=== PATIENT | female | born 1970 ===

== ENCOUNTER 2017-03-17 12:59 | Observation (INO) | payer SELFPAY ==
[2017-03-17] MEDS ORDERED: Sodium Chloride 0.9% 1,000 ML IV STA (14:03)
--- NOTE | 2017-03-17 14:12 | ED PDOC ---
HPI: Female Pain Time Seen by Provider: 03/17/17 13:57 Chief Complaint (Nursing): Female Genitourinary Chief Complaint (Provider): vaginal bleeding History Per: Patient History/Exam Limitations: no limitations Onset/Duration Of Symptoms: Days (2 weeks) Current Symptoms Are (Timing): Still Present Additional Complaint(s): Pt. with vaginal bleeding. Lower pelvic cramps. Ongoing for 2 weeks. Seen by pcp yesterday and no further tx done. Pt. with light-headedness. no chest pain , dypsnea. Has weakness all over. No dysuria. Past Medical History Reviewed: Nursing Documentation, Vital Signs Vital Signs: Last Vital Signs Temp 98.8 F 03/17/17 13:46 Pulse 121 H 03/17/17 13:46 Resp 19 03/17/17 13:46 BP 150/69 03/17/17 13:46 Pulse Ox 100 03/17/17 13:46 - Medical History PMH: Anemia (?) - Surgical History Surgical History: No Surg Hx - Family History Family History: States: Unknown Family Hx - Social History Alcohol: None Drugs: Denies - Allergies Allergies/Adverse Reactions: Allergies Allergy/AdvReac Type Severity Reaction Status Date / Time No Known Allergies Allergy Verified 03/17/17 13:45 Review of Systems ROS Statement: Except As Marked, All Systems Reviewed And Found Negative Constitutional: Positive for: Weakness Genitourinary Female: Positive for: Vaginal Bleeding, Pelvic Pain Neurological: Positive for: Weakness, Dizziness Physical Exam - Reviewed Nursing Documentation Reviewed: Yes Vital Signs Reviewed: Yes - Physical Exam Appears: Positive for: Uncomfortable Head Exam: Positive for: ATRAUMATIC, NORMAL INSPECTION, NORMOCEPHALIC Skin: Positive for: Normal Color, Warm, DRY Eye Exam: Positive for: EOMI, Normal appearance, PERRL ENT: Positive for: Normal ENT Inspection Neck: Positive for: Normal, Painless ROM Cardiovascular/Chest: Positive for: Regular Rate, Rhythm Respiratory: Positive for: CNT, Normal Breath Sounds Gastrointestinal/Abdominal: Positive for: Bowel Sounds, Soft, Tenderness ( across lower) Pelvic Exam: Positive for: External Exam Normal. Negative for: Speculum Exam Normal (blood clots and dark blood coming from cervix), Discharge Back: Positive for: Normal Inspection. Negative for: L CVA Tenderness, R CVA Tenderness Extremity: Positive for: Normal ROM. Negative for: Tenderness, Pedal Edema Neurologic/Psych: Positive for: Alert, Oriented - Laboratory Results Result Diagrams: 03/17/17 14:36 03/17/17 14:36 Interpretation Of Abn Labs: 4.7 hg - ECG O2 Sat by Pulse Oximetry: 100 Pulse Ox Interpretation: Normal - Progress ED Course And Treament: 1606: Spoke with Dr. Stern. Will admit tele. Pt. stable. Spoke with Dr. Ignacio who will consult. - Critical Care Total Time (In Min): 30 Documented Critical Care: Time excludes all time spent performint seperately billable procedures Disposition - Clinical Impression Clinical Impression: Anemia, Fibroid, Ovarian cyst, Vaginal bleeding - Patient ED Disposition Is Patient to be Admitted: Yes Counseled Patient/Family Regarding: Studies Performed, Diagnosis - Disposition Disposition Time: 16:08 Condition: SERIOUS - Pt Status Changed To: Hospital Disposition Of: Inpatient - Admit Certification Admit to Inpatient:: After my assessment, the patient will require hospitalization for at least two midnights. This is because of the severity of symptoms shown, intensity of services needed, and/or the medical risk in this patient being treated as an outpatient. - POA Present On Arrival: None
[2017-03-17 14:49] LABS: BASO # 0.1 K/uL (0.0-0.2); EOS # 0.1 K/uL (0.0-0.7); EOS % 0.6 % (0.0-4.0); LYMPH # 1.3 K/uL (1.0-4.3); LYMPH % 12.6 % (20.0-40.0); MEAN CELL VOLUME 67.3 fl (81.0-99.0); MEAN CORPUSCULAR HGB CONC 31.3 g/dL (33.0-37.0); MEAN PLATELET VOLUME 7.7 fl (7.2-11.7); MONO # 0.7 K/uL (0.0-0.8); MONO % 6.9 % (0.0-10.0); NEUT # 8.2 K/uL (1.8-7.0); NEUT % 78.9 % (50.0-75.0); NRBC % 0.3 % (0.0-0.0); RBC 2.23 Mil/uL (3.80-5.20); RED CELL DISTRIBUTION WIDTH 25.2 % (11.5-14.5); WHITE BLOOD COUNT 10.3 K/uL (4.8-10.8)
[2017-03-17 14:58] LABS: ALB/GLOB RATIO 1.1 (1.0-2.1); ALBUMIN 3.3 g/dL (3.5-5.0); ALT/SGPT 33 U/L (9-52); AST/SGOT 19 U/L (14-36); BLOOD UREA NITROGEN 11 mg/dl (7-17); CALCIUM 8.4 mg/dL (8.4-10.2); GFR AFRICAN-AMERICAN > 60; GFR NON-AFRICAN AMERICAN > 60
[2017-03-17 15:03] LABS: HEMOGLOBIN 4.7 g/dL (12.0-16.0)
[2017-03-17 15:06] LABS: PARTIAL THROMBOPLASTIN TIME 25.2 Seconds (25.6-37.1)
--- NOTE | 2017-03-17 16:07 | US ---
HISTORY: Abnormal vaginal bleeding. Duration of symptoms: 2 weeks. Menstrual status: LMP 03/01/2017. Irregular cycles. COMPARISON: None available. TECHNIQUE: Transvaginal only. Real -time technique with 2D, duplex and color Doppler FINDINGS: UTERUS: Measures 6.9 x 12 cm. Normal in size and appearance. Fundal fibroid to the right of the midline 1.8 x 2 cm. Fibroid in the body of the uterus to the right of the midline 1.9 x 2.8 cm. ENDOMETRIUM: Measures 18.0 mm in diameter. Endometrial hypertrophy. No ultrasound findings to suggest gestational sac, fluid, debris, mass or polyp or other pathologic process within the endometrium. CERVIX: No cervical abnormality identified. RIGHT OVARY: Measures 3 x 4.2 x 4.7 cm. No solid mass. Normal flow. Septated cyst 2.2 x 4.1 x 4.4 LEFT OVARY: Measures 1.4 x 1.6 x 2 cm. No solid mass. Normal flow. Simple cyst 1.1 x 2.2 cm. Multiple subcentimeter follicles. FREE FLUID: No significant free fluid noted. OTHER FINDINGS: None. IMPRESSION: Mildly enlarged, heterogeneous uterus containing 2 small fibroids. Bilateral adnexal cysts, septated larger cyst on the right. Endometrial hypertrophy without focal abnormality.
--- NOTE | 2017-03-17 17:15 | CP.PCM.HP ---
History of Present Illness - History of Present Illness History of Present Illness: Chief Complaint : menorrhagia HPI : 47 y/o lady with hx of AUB, Anemia ( transfused in the past), Fibroids, HTN came because of 2 wks history of heavy vaginal bleeding with clots. Patient states she has a history of of hypermenorrhea or years. A few years ago she was admitted to [facility] for severe Anemia and was transfused. She was diagnosed to have Fibroids and had followed up with a TECHNICIAN TERMINAL AND REPEATER . For the past 2 weeks , she started having very heavy vaginal bleeding with clots , using about 10- 15 sanitary pads per day. Today , he felt weak so presented to the ED. No dizziness, no lightheadedness, no ANTHONY, mild lower abd dicomfort, no N/V, no CP , no SOB, no palpitation Present on Admission - Present on Admission Any Indicators Present on Admission: No Review of Systems - Review of Systems All systems: reviewed and no additional remarkable complaints except - Constitutional Constitutional: Weakness. absent: Chills - EENT Eyes: absent: Blurred Vision, Change in Vision Ears: absent: Decreased Hearing, Ear Discharge Nose/Mouth/Throat: absent: Nasal Congestion - Cardiovascular Cardiovascular: absent: Chest Pain, Lightheadedness, Palpitations - Respiratory Respiratory: absent: Cough, Dyspnea, Dyspnea on Exertion - Gastrointestinal Gastrointestinal: Bloating. absent: Abdominal Pain - Genitourinary Genitourinary: absent: Difficulty Urinating, Pyuria, Nocturia - Reproductive: Female Reproductive:Female: Menses >/= 8 Days, Heavy Menses, Abnormal Vaginal Bleeding - Musculoskeletal Musculoskeletal: absent: Myalgias - Integumentary Integumentary: absent: Rash - Neurological Neurological: absent: Disequilibrium, Dizziness, Focal Weakness, Frequent Falls , Headaches - Psychiatric Psychiatric: absent: Anxiety, Confusion, Suicidal Ideation - Endocrine Endocrine: absent: Polydipsia, Polyphagia, Polyuria - Hematologic/Lymphatic Hematologic: absent: Easy Bleeding, Easy Bruising Additional comments: AUB Past Patient History - Infectious Disease Hx of Infectious Diseases: None - Tetanus Immunizations Tetanus Immunization: Unknown - Past Medical History & Family History Past Medical History?: Yes Past Family History: Reviewed and not pertinent Pertinent Family History: Mother : HTN - Past Social History Smoking Status: Never Smoked Chewing Tobacco Use: No Cigar Use: No Alcohol: None Drugs: Denies Home Situation {Lives}: With Family - CARDIAC Hx Hypertension: Yes - PULMONARY Hx Respiratory Disorders: No - NEUROLOGICAL Hx Neurological Disorder: No - HEENT Hx HEENT Problems: No - RENAL Hx Chronic Kidney Disease: No - ENDOCRINE/METABOLIC Hx Endocrine Disorders: No - HEMATOLOGICAL/ONCOLOGICAL Hx Anemia: Yes (?) - INTEGUMENTARY Hx Dermatological Problems: No - MUSCULOSKELETAL/RHEUMATOLOGICAL Hx Musculoskeletal Disorders: No - GASTROINTESTINAL Hx Gastrointestinal Disorders: No - GENITOURINARY/GYNECOLOGICAL Other/Comment: fibroids - PSYCHIATRIC Hx Psychophysiologic Disorder: No Hx Substance Use: No - SURGICAL HISTORY Hx Tubal Ligation: Yes - ANESTHESIA Hx Anesthesia: Yes Meds Allergies/Adverse Reactions: Allergies Allergy/AdvReac Type Severity Reaction Status Date / Time No Known Allergies Allergy Verified 03/17/17 13:45 Physical Exam - Constitutional Appears: Non-toxic, No Acute Distress - Head Exam Head Exam: ATRAUMATIC, NORMAL INSPECTION, NORMOCEPHALIC - Eye Exam Eye Exam: EOMI, Normal appearance, PERRL Pupil Exam: NORMAL ACCOMODATION - ENT Exam ENT Exam: Mucous Membranes Moist, Normal External Ear Exam - Neck Exam Neck exam: Positive for: Full Rom. Negative for: Meningismus - Respiratory Exam Respiratory Exam: NORMAL BREATHING PATTERN. absent: Respiratory Distress - Cardiovascular Exam Cardiovascular Exam: Tachycardia, REGULAR RHYTHM, +S1, +S2 - GI/Abdominal Exam GI & Abdominal Exam: Normal Bowel Sounds, Soft. absent: Tenderness - Back Exam Back exam: NORMAL INSPECTION. absent: CVA tenderness (L), CVA tenderness (R) - Neurological Exam Neurological exam: Alert, CN II-XII Intact, Oriented x3, Reflexes Normal - Psychiatric Exam Psychiatric exam: Normal Affect, Normal Mood - Skin Skin Exam: Dry, Pallor, Warm Results - Vital Signs Recent Vital Signs: Last Vital Signs Temp 98.8 F 03/17/17 17:10 Pulse 95 H 03/17/17 17:10 Resp 16 03/17/17 17:10 BP 116/64 03/17/17 17:10 Pulse Ox 100 03/17/17 17:10 - Labs Result Diagrams: 03/17/17 14:36 03/17/17 14:36 Labs: Laboratory Results - last 24 hr 03/17/17 03/17/17 03/17/17 14:36 14:36 14:36 WBC 10.3 RBC 2.23 L Hgb 4.7 L* Hct 15.0 L MCV 67.3 L MCH 21.0 L MCHC 31.3 L RDW 25.2 H Plt Count 419 H MPV 7.7 Neut % (Auto) 78.9 H Lymph % (Auto) 12.6 L [place] % (Auto) 6.9 Eos % (Auto) 0.6 Baso % (Auto) 1.0 Neut # (Auto) 8.2 H Lymph # (Auto) 1.3 [place] # (Auto) 0.7 Eos # (Auto) 0.1 Baso # (Auto) 0.1 PT INR APTT Sodium 140 Potassium 3.8 Chloride 106 Carbon Dioxide 24 Anion Gap 14 BUN 11 Creatinine 0.6 L Est GFR ( Amer) > 60 Est GFR (Non-Af Amer) > 60 Random Glucose 104 Calcium 8.4 Total Bilirubin 0.2 AST 19 ALT 33 Alkaline Phosphatase 97 Total Protein 6.4 Albumin 3.3 L Globulin 3.1 Albumin/Globulin Ratio 1.1 Blood Type O POSITIVE Blood Type Confirm Antibody Screen Negative Crossmatch See Detail BBK History Checked No verified bt 03/17/17 03/17/17 14:36 16:30 WBC RBC Hgb Hct MCV MCH MCHC RDW Plt Count MPV Neut % (Auto) Lymph % (Auto) [place] % (Auto) Eos % (Auto) Baso % (Auto) Neut # (Auto) Lymph # (Auto) [place] # (Auto) Eos # (Auto) Baso # (Auto) PT 11.0 INR 1.0 APTT 25.2 L Sodium Potassium Chloride Carbon Dioxide Anion Gap BUN Creatinine Est GFR ( Amer) Est GFR (Non-Af Amer) Random Glucose Calcium Total Bilirubin AST ALT Alkaline Phosphatase Total Protein Albumin Globulin Albumin/Globulin Ratio Blood Type Blood Type Confirm O POSITIVE Antibody Screen Crossmatch BBK History Checked - EKG Data EKG Interpreted by: Myself EKG shows normal: Sinus rhythm Rate: Tachycardia - EKG Data When Compared to Previous EKG: No Significant Change Assessment & Plan (1) Abnormal uterine bleeding (AUB) Status: Acute (2) Acute blood loss anemia Status: Acute (3) Fibroid Status: Chronic (4) Ovarian cyst Status: Chronic (5) HTN (hypertension) Status: Chronic (6) DVT prophylaxis Status: Acute - Assessment and Plan (Free Text) Assessment: 47 y/o lady with Hx of Fibroids, HTN, came in bec of menorrhagia and weakness. (1) Abnormal uterine bleeding (AUB) Status: Acute Pt has been having menorrhagia x 2 wks with blood clots tachycardic TECHNICIAN TERMINAL AND REPEATER consult Pelvic Sono :Mildly enlarged, heterogeneous uterus containing 2 small fibroids. Bilateral adnexal cysts, septated larger cyst on the right. Endometrial hypertrophy without focal abnormality. (2) Acute blood loss anemia Status: Acute Pt came in with Hgb 4.7 likely due to acute and chronic blood loss Transfuse 2 units PRBC Will give Venofer IVF hydration (3) Fibroid Status: Chronic (4) Ovarian cyst Status: Chronic 4cm septated cyst right (5) HTN (hypertension) Status: Chronic hold off on antihypertensive for now (6) DVT prophylaxis Status: Acute SCD Decision To Admit - Pt Status Changed To: Hospital Disposition Of: Inpatient - Admit Certification Admit to Inpatient:: After my assessment, the patient will require hospitalization for at least two midnights. This is because of the severity of symptoms shown, intensity of services needed, and/or the medical risk in this patient being treated as an outpatient. - . Bed Request Type: Telemetry Admitting Physician: Ena Stern
[2017-03-17] MEDS: Sodium Chloride 0.9% 1,000 ML IV SCH (19:58)
--- NOTE | 2017-03-17 19:59 | CP.PCM.CON ---
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 Patient states she has a history of heavy periods for years but this is the first time she is bleeding for more than one week. A few years ago she was admitted to [facility] for severe anemia and was transfused. She was diagnosed to have Fibroids and had followed up with a HYDRATE CONTROL TENDER . Today , he felt weak so presented to the ED. Denies dizziness, no lightheadedness, no ANTHONY, mild lower abd discomfort, no N/V, no CP, no SOB, no palpitation, no urinary symptoms. Primary HYDRATE CONTROL TENDER: Dr Yamila Mg. PObH: , NVD x3. PGyn: no h/o std, uterine fibroids. PMH: HTN FMH: denies. NKDA. PSH: denies Past Patient History - Infectious Disease Hx of Infectious Diseases: None - Tetanus Immunizations Tetanus Immunization: Unknown - Past Medical History & Family History Past Medical History?: Yes Past Family History: Reviewed and not pertinent - Past Social History Smoking Status: Never Smoked Chewing Tobacco Use: No Cigar Use: No Alcohol: None Drugs: Denies Home Situation {Lives}: With Family - CARDIAC Hx Hypertension: Yes - PULMONARY Hx Respiratory Disorders: No - NEUROLOGICAL Hx Neurological Disorder: No - HEENT Hx HEENT Problems: No - RENAL Hx Chronic Kidney Disease: No - ENDOCRINE/METABOLIC Hx Endocrine Disorders: No - HEMATOLOGICAL/ONCOLOGICAL Hx Anemia: Yes (?) - INTEGUMENTARY Hx Dermatological Problems: No - MUSCULOSKELETAL/RHEUMATOLOGICAL Hx Musculoskeletal Disorders: No - GASTROINTESTINAL Hx Gastrointestinal Disorders: No - GENITOURINARY/GYNECOLOGICAL Other/Comment: fibroids - PSYCHIATRIC Hx Psychophysiologic Disorder: No Hx Substance Use: No - SURGICAL HISTORY Hx Tubal Ligation: Yes - ANESTHESIA Hx Anesthesia: Yes Meds Allergies/Adverse Reactions: Allergies Allergy/AdvReac Type Severity Reaction Status Date / Time No Known Allergies Allergy Verified 03/17/17 13:45 - Medications Medications: Current Medications Iron Sucrose 100 mg/ Sodium (Chloride) 105 mls @ 105 mls/hr IVPB DAILY JEFFERSON Stop: 03/20/17 09:59 Sodium Chloride (Sodium Chloride 0.9%) 1,000 mls @ 125 mls/hr IV .Q8H JEFFERSON Stop: 03/18/17 17:50 Last Admin: 03/17/17 19:58 Dose: Not Given Physical Exam - Constitutional Appears: No Acute Distress - Head Exam Head Exam: NORMAL INSPECTION - Eye Exam Eye Exam: EOMI, PERRL Additional comments: Mucuses pale - Neck Exam Neck exam: Negative for: Thyromegaly - Respiratory Exam Respiratory Exam: Clear to Auscultation Bilateral. absent: Rhonchi, Wheezes - Cardiovascular Exam Cardiovascular Exam: Tachycardia, REGULAR RHYTHM. absent: Systolic Murmur - GI/Abdominal Exam GI & Abdominal Exam: Normal Bowel Sounds, Soft. absent: Distended Additional comments: Mild tenderness on low abdomen during palpation. - Exam Additional comments: Speculum: bright red blood coming from cervix, some clots observed, no vaginal lacerations. VE: no CMT, no anedxal mass, mild uterine tenderness on deep palpation - Skin Skin Exam: Dry, Pallor, Warm Results - Vital Signs Recent Vital Signs: Last Vital Signs Temp 98.2 F 03/17/17 19:36 Pulse 95 H 03/17/17 19:36 Resp 16 03/17/17 19:36 BP 120/76 03/17/17 19:36 Pulse Ox 99 03/17/17 19:36 - Labs Result Diagrams: 03/17/17 14:36 03/17/17 14:36 Labs: Laboratory Results - last 24 hr 03/17/17 03/17/17 03/17/17 14:36 14:36 14:36 WBC 10.3 RBC 2.23 L Hgb 4.7 L* Hct 15.0 L MCV 67.3 L MCH 21.0 L MCHC 31.3 L RDW 25.2 H Plt Count 419 H MPV 7.7 Neut % (Auto) 78.9 H Lymph % (Auto) 12.6 L [place] % (Auto) 6.9 Eos % (Auto) 0.6 Baso % (Auto) 1.0 Neut # (Auto) 8.2 H Lymph # (Auto) 1.3 [place] # (Auto) 0.7 Eos # (Auto) 0.1 Baso # (Auto) 0.1 PT INR APTT Sodium 140 Potassium 3.8 Chloride 106 Carbon Dioxide 24 Anion Gap 14 BUN 11 Creatinine 0.6 L Est GFR ( Amer) > 60 Est GFR (Non-Af Amer) > 60 Random Glucose 104 Calcium 8.4 Total Bilirubin 0.2 AST 19 ALT 33 Alkaline Phosphatase 97 Total Protein 6.4 Albumin 3.3 L Globulin 3.1 Albumin/Globulin Ratio 1.1 Serum HCG, Qual Blood Type O POSITIVE Blood Type Confirm Antibody Screen Negative Crossmatch See Detail BBK History Checked No verified bt 03/17/17 03/17/17 03/17/17 14:36 16:30 17:05 WBC RBC Hgb Hct MCV MCH MCHC RDW Plt Count MPV Neut % (Auto) Lymph % (Auto) [place] % (Auto) Eos % (Auto) Baso % (Auto) Neut # (Auto) Lymph # (Auto) [place] # (Auto) Eos # (Auto) Baso # (Auto) PT 11.0 INR 1.0 APTT 25.2 L Sodium Potassium Chloride Carbon Dioxide Anion Gap BUN Creatinine Est GFR ( Amer) Est GFR (Non-Af Amer) Random Glucose Calcium Total Bilirubin AST ALT Alkaline Phosphatase Total Protein Albumin Globulin Albumin/Globulin Ratio Serum HCG, Qual Negative Blood Type Blood Type Confirm O POSITIVE Antibody Screen Crossmatch BBK History Checked Assessment & Plan - Assessment and Plan (Free Text) Assessment: Abnormal uterine bleeding -menorrhagia x 2 wks with blood clots -Pelvic US :Mildly enlarged, heterogeneous uterus containing 2 small fibroids. Bilateral adnexal cysts, septated larger cyst on the right. Endometrial hypertrophy without focal abnormality. -Pt has appt with primary HYDRATE CONTROL TENDER in 2 weeks to discuss definitive treatments options Acute severe anemia -Secondary to blood loss -H/H 4.7/15.0 -Transfuse 2 units PRBC -Venofer IV -IVF hydration -f/u CBC -will monitor Case discussed with Dr Ignacio, PRINTING SIGN MACHINE OPERATOR hospitalist stone breaker. YBecerra PGY 1. <Umesh Ignacio - Last Filed: 03/17/17 20:40> Meds - Medications Medications: Current Medications Iron Sucrose 100 mg/ Sodium (Chloride) 105 mls @ 105 mls/hr IVPB DAILY [place] Stop: 03/20/17 09:59 Sodium Chloride (Sodium Chloride 0.9%) 1,000 mls @ 125 mls/hr IV .Q8H [place] Stop: 03/18/17 17:50 Last Admin: 03/17/17 19:58 Dose: Not Given Results - Vital Signs Recent Vital Signs: Last Vital Signs Temp 98.2 F 03/17/17 19:36 Pulse 95 H 03/17/17 19:36 Resp 16 03/17/17 19:36 BP 120/76 03/17/17 19:36 Pulse Ox 99 03/17/17 19:36 - Labs Result Diagrams: 03/17/17 14:36 03/17/17 14:36 Labs: Laboratory Results - last 24 hr 03/17/17 03/17/17 03/17/17 14:36 14:36 14:36 WBC 10.3 RBC 2.23 L Hgb 4.7 L* Hct 15.0 L MCV 67.3 L MCH 21.0 L MCHC 31.3 L RDW 25.2 H Plt Count 419 H MPV 7.7 Neut % (Auto) 78.9 H Lymph % (Auto) 12.6 L [place] % (Auto) 6.9 Eos % (Auto) 0.6 Baso % (Auto) 1.0 Neut # (Auto) 8.2 H Lymph # (Auto) 1.3 [place] # (Auto) 0.7 Eos # (Auto) 0.1 Baso # (Auto) 0.1 PT INR APTT Sodium 140 Potassium 3.8 Chloride 106 Carbon Dioxide 24 Anion Gap 14 BUN 11 Creatinine 0.6 L Est GFR ( Amer) > 60 Est GFR (Non-Af Amer) > 60 Random Glucose 104 Calcium 8.4 Total Bilirubin 0.2 AST 19 ALT 33 Alkaline Phosphatase 97 Total Protein 6.4 Albumin 3.3 L Globulin 3.1 Albumin/Globulin Ratio 1.1 Serum HCG, Qual Blood Type O POSITIVE Blood Type Confirm Antibody Screen Negative Crossmatch See Detail BBK History Checked No verified bt 03/17/17 03/17/17 03/17/17 14:36 16:30 17:05 WBC RBC Hgb Hct MCV MCH MCHC RDW Plt Count MPV Neut % (Auto) Lymph % (Auto) [place] % (Auto) Eos % (Auto) Baso % (Auto) Neut # (Auto) Lymph # (Auto) [place] # (Auto) Eos # (Auto) Baso # (Auto) PT 11.0 INR 1.0 APTT 25.2 L Sodium Potassium Chloride Carbon Dioxide Anion Gap BUN Creatinine Est GFR ( Amer) Est GFR (Non-Af Amer) Random Glucose Calcium Total Bilirubin AST ALT Alkaline Phosphatase Total Protein Albumin Globulin Albumin/Globulin Ratio Serum HCG, Qual Negative Blood Type Blood Type Confirm O POSITIVE Antibody Screen Crossmatch BBK History Checked Assessment & Plan - Assessment and Plan (Free Text) Plan: Seen with the resident I agree with an out patient to be transfused Patient will need endometrial biopsy as outpatient Recommendation for definitive therapy was made Patient's discussed with her PMD
[2017-03-18] MEDS: Sodium Chloride 0.9% 1,000 ML IV SCH (01:00)
[2017-03-18 05:36] LABS: MEAN CELL VOLUME 76.8 fl (81.0-99.0); MEAN CORPUSCULAR HEMOGLOBIN 23.6 pg (27.0-31.0); MEAN CORPUSCULAR HGB CONC 30.8 g/dL (33.0-37.0); RBC 2.82 Mil/uL (3.80-5.20); RED CELL DISTRIBUTION WIDTH 29.6 % (11.5-14.5); WHITE BLOOD COUNT 7.4 K/uL (4.8-10.8)
[2017-03-18 05:59] LABS: HEMOGLOBIN 6.7 g/dL (12.0-16.0)
[2017-03-18 06:31] LABS: BLOOD UREA NITROGEN 7 mg/dl (7-17); GFR AFRICAN-AMERICAN > 60; GFR NON-AFRICAN AMERICAN > 60
[2017-03-18 08:25] LABS: IRON 37 ug/dL (37-170)
[2017-03-18 08:34] LABS: % IRON SATURATION 11 % (20-55); TOTAL IRON BINDING CAPACITY 349 ug/dL (250-450)
--- NOTE | 2017-03-18 09:07 | CARD ---
APPROVED REPORT EKG Measurement Heart [id number] <Conclusion> Sinus tachycardia Otherwise normal ECG
[2017-03-18 12:24] VITALS: O2SAT 98
[2017-03-18 16:10] VITALS: BP 114/72; PULSE 98; RESP 16; TEMP 98.2
[2017-03-18 17:23] LABS: HEMOGLOBIN 9.1 g/dL (12.0-16.0); MEAN CELL VOLUME 79.2 fl (81.0-99.0); MEAN CORPUSCULAR HEMOGLOBIN 25.4 pg (27.0-31.0); RBC 3.61 Mil/uL (3.80-5.20); RED CELL DISTRIBUTION WIDTH 25.6 % (11.5-14.5); WHITE BLOOD COUNT 9.2 K/uL (4.8-10.8)
--- NOTE | 2017-03-18 17:42 | CP.PCM.DIS ---
Provider - Provider Date of Admission: 03/17/17 16:08 Attending physician: Ena Stern MD Consults: [facility] ATTENDANT : DR Ignacio Time Spent in preparation of Discharge (in minutes): 35 Diagnosis - Discharge Diagnosis (1) Abnormal uterine bleeding (AUB) Status: Acute (2) Acute blood loss anemia Status: Acute (3) Fibroid Status: Chronic (4) Ovarian cyst Status: Chronic (5) HTN (hypertension) Status: Chronic (6) DVT prophylaxis Status: Acute Hospital Course - Lab Results Lab Results: Most Recent Lab Values WBC 9.2 K/uL (4.8-10.8) 03/18/17 16:56 RBC 3.61 Mil/uL (3.80-5.20) L 03/18/17 16:56 Hgb 9.1 g/dL (12.0-16.0) L D 03/18/17 16:56 Hct 28.6 % (34.0-47.0) L 03/18/17 16:56 MCV 79.2 fl (81.0-99.0) L D 03/18/17 16:56 MCH 25.4 pg (27.0-31.0) L 03/18/17 16:56 MCHC 32.0 g/dL (33.0-37.0) L 03/18/17 16:56 RDW 25.6 % (11.5-14.5) H 03/18/17 16:56 Plt Count 366 K/uL (130-400) 03/18/17 16:56 MPV 7.7 fl (7.2-11.7) 03/17/17 14:36 Neut % (Auto) 78.9 % (50.0-75.0) H 03/17/17 14:36 Lymph % (Auto) 12.6 % (20.0-40.0) L 03/17/17 14:36 Ida % (Auto) 6.9 % (0.0-10.0) 03/17/17 14:36 Eos % (Auto) 0.6 % (0.0-4.0) 03/17/17 14:36 Baso % (Auto) 1.0 % (0.0-2.0) 03/17/17 14:36 Neut # (Auto) 8.2 K/uL (1.8-7.0) H 03/17/17 14:36 Lymph # (Auto) 1.3 K/uL (1.0-4.3) 03/17/17 14:36 Ida # (Auto) 0.7 K/uL (0.0-0.8) 03/17/17 14:36 Eos # (Auto) 0.1 K/uL (0.0-0.7) 03/17/17 14:36 Baso # (Auto) 0.1 K/uL (0.0-0.2) 03/17/17 14:36 PT 11.0 Seconds (9.8-13.1) 03/17/17 14:36 INR 1.0 (0.9-1.2) 03/17/17 14:36 APTT 25.2 Seconds (25.6-37.1) L 03/17/17 14:36 Sodium 138 mmol/l (132-148) 03/18/17 05:10 Potassium 3.8 MMOL/L (3.6-5.0) 03/18/17 05:10 Chloride 107 mmol/L (98-107) 03/18/17 05:10 Carbon Dioxide 24 mmol/L (22-30) 03/18/17 05:10 Anion Gap 11 (10-20) 03/18/17 05:10 BUN 7 mg/dl (7-17) 03/18/17 05:10 Creatinine 0.6 mg/dl (0.7-1.2) L 03/18/17 05:10 Est GFR ( Amer) > 60 03/18/17 05:10 Est GFR (Non-Af Amer) > 60 03/18/17 05:10 Random Glucose 86 mg/dL (65-105) 03/18/17 05:10 Calcium 8.0 mg/dL (8.4-10.2) L 03/18/17 05:10 Iron 37 ug/dL (37-170) 03/18/17 05:40 TIBC 349 ug/dL (250-450) 03/18/17 05:40 % Saturation 11 % (20-55) L 03/18/17 05:40 Total Bilirubin 0.2 mg/dl (0.2-1.3) 03/17/17 14:36 AST 19 U/L (14-36) 03/17/17 14:36 ALT 33 U/L (9-52) 03/17/17 14:36 Alkaline Phosphatase 97 U/L (38-126) 03/17/17 14:36 Total Protein 6.4 G/DL (6.3-8.2) 03/17/17 14:36 Albumin 3.3 g/dL (3.5-5.0) L 03/17/17 14:36 Globulin 3.1 gm/dL (2.2-3.9) 03/17/17 14:36 Albumin/Globulin Ratio 1.1 (1.0-2.1) 03/17/17 14:36 Serum HCG, Qual Negative (NEGATIVE) 03/17/17 17:05 Blood Type O POSITIVE 03/17/17 14:36 Blood Type Confirm O POSITIVE 03/17/17 16:30 Antibody Screen Negative 03/17/17 14:36 Crossmatch See Detail 03/17/17 14:36 BBK History Checked No verified bt 03/17/17 14:36 - Hospital Course Hospital Course: 47 y/o lady with Hx of Fibroids, HTN, came in bec of menorrhagia and weakness. CBC showed Hgb =4.7 . Pt was admitted and started on Blood Transfusion. She was transfused 4 units PRBC and 1 unit FFP. [facility] was [facility] - Dr Mateus willams outpatient [employer]END[facility] ff up dipika - pt has an appt with her [employer] ATTEND[facility]. Vaginal bleeding resolved. (1) Abnormal uterine bleeding (AUB) Status: Acute Pt has been having menorrhagia x 2 wks with blood clots tachycardic on admission Vag bleeding now resolved [employer]END[employer] consulted- rec outpt [employer] ff up for further mgt Pelvic Sono :Mildly enlarged, heterogeneous uterus containing 2 small fibroids. Bilateral adnexal cysts, septated larger cyst on the right. Endometrial hypertrophy without focal abnormality. (2) Acute blood loss anemia Status: Acute Pt came in with Hgb 4.7 likely due to acute and chronic blood loss Transfused 4 units PRBC and 1 unit FFP rpt hgb=9.9 Received Venofer IVF hydration (3) Fibroid Status: Chronic (4) Ovarian cyst Status: Chronic 4cm septated cyst right [employer] appt dipika (5) HTN (hypertension) Status: Chronic resume home BP med (6) DVT prophylaxis Status: Acute SCD Discharge Exam - Head Exam Head Exam: ATRAUMATIC, NORMAL INSPECTION, NORMOCEPHALIC - Eye Exam Eye Exam: EOMI, Normal appearance, PERRL Pupil Exam: NORMAL ACCOMODATION - ENT Exam ENT Exam: Mucous Membranes Moist, Normal External Ear Exam - Neck Exam Neck exam: Full Rom - Respiratory Exam Respiratory Exam: NORMAL BREATHING PATTERN. absent: Respiratory Distress - Cardiovascular Exam Cardiovascular Exam: REGULAR RHYTHM, +S1, +S2 - GI/Abdominal Exam GI & Abdominal Exam: Normal Bowel Sounds, Soft. absent: Tenderness - Extremities Exam Extremities exam: full ROM, normal capillary refill, pedal pulses present - Back Exam Back exam: FULL ROM. absent: CVA tenderness (L), CVA tenderness (R) - Neurological Exam Neurological exam: Alert, CN II-XII Intact, Normal Gait, Oriented x3, Reflexes Normal - Psychiatric Exam Psychiatric exam: Normal Affect, Normal Mood - Skin Skin Exam: Dry, Normal Color, Warm Discharge Plan - Follow Up Plan Condition: GOOD Disposition: HOME/ ROUTINE Additional Instructions: ff up with [facility] ATTEND[facility] dipika [facility] clinic appt in 1 wk Referrals: [facility] [Outside]
== END 2017-03-18 18:50 | disposition home or self-care (01) ==
LOC: H.ER 12:59 → INTOOBSV 16:08 → H.ERHOLD 16:08 → H.TEL 23:12
PROVIDERS: ADMIT Internal Medicine; ATTEND Internal Medicine
DX: D62 Acute posthemorrhagic anemia (principal); N92.0 Excessive and frequent menstruation with regular cycle; D25.9 Leiomyoma of uterus, unspecified; I10 Essential (primary) hypertension; N83.201 Unspecified ovarian cyst, right side
CPT/HCPCS: 36415; 36430; 76830; 80048; 80053; 81025; 83540; 83550; 84703; 85025; 85027; 85610; 85730; 86850; 86900; 86920; 93005; 99285; G0378; J1756; J7040; P9017; P9051